=== PATIENT | male | born 1930 | race African-American/Black ===

== ENCOUNTER 2016-04-08 05:28 | Day surgery (SDC) | payer OTHER ==
[~2016-04-08] VITALS: Ht 170.2 cm; Wt 61.7 kg
--- NOTE | ~2016-04-08 | O ---
[facility] [address] OPERATIVE REPORT Name: TANESHA GAMING Room #: 150-11 [facility] M.R.#: [id number] Admission: 04/08/16 Attend Phys: Jose M Christopher MD, F Discharge: Date of : [birth year] Report #: [id number] THIS REPORT FOR: //name// CC: FAM unknown Jose M Christopher DATE OF SERVICE: 04/08/2016 PREOPERATIVE DIAGNOSIS: Stage 4 sacral decubitus ulcer. 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 PROCEDURE: Excisional debridement of stage 4 sacral decubitus ulcer and excision of coccyx (coccygectomy). SURGEON: Jose M Christopher MD BIOCHEMISTRY TECHNOLOGIST: Quan Chang, MS3 INDICATIONS: An 85-year-old male who was hospitalized at [facility] facility for a progressively enlarging 4-5 cm decubitus ulcer with the coccyx necrotic in the base. This requires excisional debridement and opening of the wound for further definitive care. OPERATIVE PROCEDURE: The patient and his , durable power of health care attorney had thorough discussion of procedure, benefits and risks. She gave informed consent to proceed. He was brought to the operating room suite and had satisfactory induction of general endotracheal anesthesia. He was then placed into the prone position. Sterile Betadine was utilized for disinfectant around the wound. The patient was given preoperative IV antibiotics. After draping was completed, an appropriate timeout was then performed. The apex superior aspect of the circular wound of approximately 5 cm in diameter was opened in a vertical manner at the 12 position. Small ellipse of necrotic skin along the edges was excised to further open up the wound. The underlying tissue demonstrated satisfactory granulation tissue. In the depths of the wound was the necrotic coccyx. This coccyx was removed with minimal difficulty. All of the necrotic skin and subcutaneous tissue as well as the coccyx were sent for histologic evaluation. The mass of soft tissue that was excised was approximately 4 x 6 x 2 cm in greatest dimensions. Hemostasis was achieved with electrocautery of the cartilaginous end of the coccygectomy site. Rasp was utilized to file off any bony fragments of the coccygectomy site. The deep subcutaneous tissue and skin margins were made hemostatic with electrocautery. After this was completed, the wound was packed with Kerlix gauze, soaked in Naropin solution. Approximately 20 mL of Naropin was utilized to soak the gauze. A 10 mL of Naropin had been injected prior to initial resection. The estimated blood loss [facility] [address] [place] [address] OPERATIVE REPORT Name: TANESHA GAMING Room #: 150-11 [facility] M.R.#: [id number] Admission: 04/08/16 Attend Phys: Jose M Christopher MD, F Discharge: Date of : [birth year]/20/[birth year] Report #: [id number] was less than 5 mL. The patient had sterile application of ABD dressings. He returned to recovery room in stable and satisfactory condition. He will be transferred back to [facility]. He tolerated the procedure well. <ELECTRONICALLY SIGNED> By: Jose M Christopher MD, FACS 04/10/16 1047 [id number] 21 Jose M Christopher MD, FACS /nt
--- NOTE | ~2016-04-08 | S ---
[facility] [place] [address] SURGICAL PATH RPT PROCEDURE Name: STEVEN GAMING Room #: DEP [facility] M.R.#: [id number] Admission: 04/08/16 Date of : [birth year] Discharge: 04/08/16 Report #: [id number] Path Case #: [id number] PATHOLOGY REPORT COLLECTION DATE: 04/08/2016 RECEIVED DATE: 04/08/2016 SUBMITTING PHYS: Dr. Jose M Christopher OTHER PHYS: SPECIMEN(S) RECEIVED: A.Necrotic sacral wound * * * * * * * * * * * * FINAL DIAGNOSIS: "Necrotic sacral wound," debridement: - Skin and subcutaneous tissue with acute and chronic inflammation, necrosis, granulation tissue, and pseudoepitheliomatous hyperplasia. - Decalcified bone and periosteum with acute osteomyelitis. (CLW:; d/t: 04/12/16) PATHOLOGIST: Annamarie Arauz M.D. REPORT ELECTRONICALLY SIGNED BY: Annamarie Arauz M.D. DATE/TIME: 04/12/2016 15:48 * * * * * * * * * * * * GROSS PATHOLOGY: The specimen is received in formalin labeled "Steven Gaming necrotic tissue," and additionally labeled on the requisition as, "stage IV sacral with". Received are multiple segments of dusky ramírez-payne skin admixed with light payne bone measuring 3.1 x 2.3 x 1.1 cm in aggregate dimensions. The specimen is submitted representatively in cassette A1, following decalcification. (CAA; 04/11/2016) CLINICAL HISTORY: Stage IV sacral wound INITIAL CPT CODE(S): A; 40098, 27861 Professional services performed by [facility] at [facility] [address], [place] [address] Technical services performed by [facility] at [address] [place] [address], [address] [address] [facility] [address] [place] [address] SURGICAL PATH RPT PROCEDURE Name: STEVEN GAMING Room #: DEP [facility] Charmaine#: [id number] Admission: 04/08/16 Date of : [birth year] Discharge: 04/08/16 Report #: [id number] Path Case #: [id number] [facility] [address] [address] PHONE: [phone] DIRECTOR: Efrem Jasso M.D. * * * END OF REPORT * * *
--- NOTE | ~2016-04-08 | EKG ---
[address] [address] ELECTROCARDIOGRAM REPORT Name: TANESHA GAMING Room #: 150-[address] [place] [address] M.R.#: [id number] Admission: 04/08/16 Attend Phys: Jose M Christopher MD, F Discharge: Date of : [birth year] Report #: [id number] THIS REPORT FOR: //name// [facility] Test Date: 2016-04-08 Test Time: 12:48:07 Pat Name: TANESHA GAMING Department: Room: 150 Gender: M Visual Basic Developer: COLBY : 1930 Requested By: Jose M Christopher Order Number: [id number] MD: Choco Manuel Measurements Intervals [place] Rate: 73 P: 87 SC: 178 QRS: -75 QRSD: 147 T: 87 QT: 397 QTc: 438 Interpretive Statements Sinus rhythm Left bundle branch block No previous ECG available for comparison Electronically Signed On 04-09-2016 13:36:09 BAKERY CHEF by Choco Manuel [email or web address] <ELECTRONICALLY SIGNED> By: Choco Manuel MD, [facility] 04/09/16 1336 1248 1248 Choco Manuel MD, FACC /EPI
--- NOTE | ~2016-04-08 | H ---
[facility] [place] [address] HISTORY AND PHYSICAL Name: TANESHA GAMING Room #: DEP [facility] M.R.#: [id number] Admission: 04/08/16 Attend Phys: Jose M Christopher MD, F Discharge: 04/08/16 Date of : [birth year] Report #: [id number] THIS REPORT FOR: //name// CC: FAM unknown Jose M Christopher DATE OF SERVICE: 04/08/2016 I have transferred this 85-year-old male to [facility] from [facility] for debridement of a stage 4 sacral decubitus ulcer of approximately 5-6 cm diameter. There is coccyx fragment in the depths of the wound. There is necrotic tissue which requires resection and debridement. The patient has had this ongoing development of stage 4 ulcer for a period of time as the patient is wheelchair bound. PAST MEDICAL AND SURGICAL HISTORY: Consistent with hypertension, paroxysmal atrial fibrillation and pacemaker implant, prostate cancer, sleep apnea, kidney stones, restless legs syndrome, hyperlipidemia, osteoarthritis, osteoporosis, GERD, coronary artery disease, conjunctivitis, insomnia, glaucoma, retinitis, tinnitus, fecal incontinence. He has had a previous cholecystectomy. He has had previous cervical disk surgery, inguinal hernia repair, neurogenic bladder, he is legally blind and stage 4 decubitus ulcer. SOCIAL HISTORY: A 30-plus pack year history of cigarette smoking, currently lives with his at home. MEDICATIONS: Levothyroxine 0.05 mg daily, Coumadin 3 mg last taken approximately 5 days ago, Cathflo Activase as indicated for catheter, ferrous sulfate, aspirin 81 mg daily, multivitamins, Casodex 50 mg tablets, Colace 100 mg capsules, metoprolol 25 mg b.i.d., pred forte eye drops, calcium carbonate, Os-Vince 500, cholecalciferol 1000 units, Protonix 40 mg daily, probiotic, lactobacillus acidophilus 1 cap b.i.d., brimonidine tartrate, timolol drops for his eyes, ceftriaxone for the decubitus ulcer, oxybutynin 5 mg q. 8 hours, lactose free food, carbidopa/levodopa, Sinemet 25/100 mg tablets at bedtime daily. The patient also takes trazodone, , Lipitor 10 mg, latanoprost, Xalatan 0.005% eye drops, atropine 1% eye drops also. REVIEW OF SYSTEMS: Positive : HEENT: Eye drops for his glaucoma. RESPIRATORY: Denies shortness of breath or any changes. CARDIOVASCULAR: No significant chest pain. Symptoms consistent with angina. ABDOMEN: No abdominal pain, satisfactory GI function. PHYSICAL EXAMINATION: The patient's is at the bedside. HEENT: The patient is legally blind. NECK: No bruits. [facility] [address] [place] [address] HISTORY AND PHYSICAL Name: TANESHA GAMING Room #: DEP [facility] Charmaine#: [id number] Admission: 04/08/16 Attend Phys: Jose M Christopher MD, F Discharge: 04/08/16 Date of : [birth year] Report #: [id number] CARDIOVASCULAR: Paced rhythm. LUNGS: Clear at the bases. ABDOMEN: Benign, scaphoid, soft, nontender. NEUROLOGIC: Limited motor function lower extremities. BACK: There is a 5 x 6 cm stage 4 sacral decubitus ulcer with coccyx bony structure in the midportion. This all requires surgical debridement. The patient will return to [facility] after the outpatient surgery is completed. <ELECTRONICALLY SIGNED> By: Jose M Christopher MD, FACS 05/02/16 1323 1204 1321 Jose M Christopher MD, FACS /nt
[~2016-04-08 05:28] MED LIST: ALENDRONATE SOD70 MG PO; ASPIR 8181 MG PO; ATROPINE 1% EYE D11 OPHTHALMIC; BOOST PLUS237 ML PO; BRIMONIDINE TAR1 BO1 OPHTHALMIC; CALCIUM 500 +1 EAC5 PO; CASODEX 50 MG T50 M1 PO; CATHFLO ACT2 MG/VIAL INJECTION; CEFTRIAXON2 GM/50 ML IVPB; COLACE 100 MG100 MG PO; COUMADIN 3 MG TA3 M1 PO; DAKIN'S473 M1 TOP; DUONEB 2.5-0.5 M3 ML INH; FLUSH FLUSH; HEPARIN SO5000 UNIT2 SUBQ; IRON325 PO; LEVOTHYROXINE0.05 MG PO; LIPITOR10 MG PO; LOPRESSOR25 PO; METRONIDAZOLE500 M5 IVPB; MIRALAX17 GM PO; MIRAPEX 0.250.25 M1 PO; MULTIVITAMINS PO; NITROGLYCERIN0.4 MG SUBLING; OXYBUTYNIN 5 MG5 M2 PO; PANTOPRAZOLE SO40 M1 PO; PRED FORTE 1% EY5 M1 OP; PROBIOTIC1 EAC1 PO; ROBITUSSIN100 MG/53 PO; SINEMET 25-1001 EAC1 PO; SODIUM CHLORI1000 M4 IV; TIMOLOL GL0.5 %/5 M1 OPHTHALMIC; TRAZODONE HCL50 MG PO; VITAMIN D1000 UNI1 PO; XALATAN2.5 ML OPHTHALMIC
[2016-04-08 12:55] LABS: HEMATOCRIT 28.7 % (42.0-52.0); HEMOGLOBIN 9.4 gm/dL (14.0-18.0); MCHC 32.6 % (28.0-37.0); MCV 88.8 fL (80.0-100.0); RBC 3.23 mil/uL (4.50-6.00); RDW 18.2 % (10.5-14.5); WBC 7.9 thou/uL (4.0-11.0)
[2016-04-08 13:00] VITALS: BP 132/58
[2016-04-08 13:08] LABS: APTT 30.9 Seconds (24.5-32.8); INR 1.2; PROTIME 12.7 Seconds (9.3-11.4)
[2016-04-08 13:38] LABS: CALCIUM 8.3 mg/dL (8.5-10.1); CREATININE 0.6 mg/dL (0.6-1.3); POTASSIUM 4.5 mmol/L (3.5-5.1)
== END 2016-04-08 16:20 | disposition home or self-care (01) ==
LOC: TBA 05:28 → OR 05:28
PROVIDERS: Surgery
DX: L89.154 Pressure ulcer of sacral region, stage 4 (principal); M53.3 Sacrococcygeal disorders, not elsewhere classified; I25.10 Atherosclerotic heart disease of native coronary artery without angina pectoris; I25.2 Old myocardial infarction; I10 Essential (primary) hypertension; G47.33 Obstructive sleep apnea (adult) (pediatric); I48.0 Paroxysmal atrial fibrillation; E78.2 Mixed hyperlipidemia; K21.9 Gastro-esophageal reflux disease without esophagitis; M19.90 Unspecified osteoarthritis, unspecified site; M81.0 Age-related osteoporosis without current pathological fracture; H40.9 Unspecified glaucoma; D64.9 Anemia, unspecified; Z90.49 Acquired absence of other specified parts of digestive tract; Z95.0 Presence of cardiac pacemaker; Z85.46 Personal history of malignant neoplasm of prostate; Z98.890 Other specified postprocedural states; Z87.891 Personal history of nicotine dependence
CPT/HCPCS: 50010; 50101; 50386; 50403; 62110; 62900; 70005